=== PATIENT | male | born 1990 | race Caucasian/White ===

== ENCOUNTER 2021-09-26 | Outpatient (REF) | payer OTHER, SELFPAY ==
[2021-09-27 12:09] LABS: Influenza A PCR NEGATIVE (Negative); Influenza B PCR NEGATIVE (Negative); Resp Syncy Virus RNA Qual PCR NEGATIVE (Negative); SARS COV2 PCR INHOUSE NEGATIVE (Negative)
== END 2021-09-26 00:01 | disposition home or self-care (01) ==
LOC: HO.LNP
PROVIDERS: Visit Provider Internal Medicine
DX: Z20.822 Contact with and (suspected) exposure to COVID-19 (principal); R43.9 Unspecified disturbances of smell and taste
CPT/HCPCS: 0241U

== ENCOUNTER 2023-11-18 09:09 | Emergency (ER) | payer MEDICAID, SELFPAY ==
--- NOTE | ~2023-11-18 | XR_ITS ---
EXAMINATION: XR FOOT, LEFT CLINICAL INFORMATION: Pain COMPARISON: Same day left ankle TECHNIQUE: AP, lateral, and oblique views of the left foot. FINDINGS: The bones are intact. No fracture. Alignment is anatomic. Joint spaces are maintained. Small bony spur extends off the medial aspect of the distal phalanx of the great toe. Achilles enthesophyte is noted. XR/XR foot LT min 3V IMPRESSION: No acute bony abnormality.
--- NOTE | ~2023-11-18 | XR_ITS ---
EXAMINATION: XR ANKLE, LEFT CLINICAL INFORMATION: Pain COMPARISON: Same-day left foot TECHNIQUE: AP and mortise views of the left ankle. Lateral views of the ankle is seen with the views of the left foot. FINDINGS: No fracture. Alignment is anatomic. No erosions. Joint spaces are maintained. Mild soft tissue swelling about the ankle. Achilles enthesophyte is noted. XR/XR ankle LT min 3V IMPRESSION: No acute bony abnormality.
[2023-11-18 09:37] VITALS: BP 119/77; PULSE 73; RESP 16; TEMP 36.6; O2SAT 98; BMI 53.5
[2023-11-18] MEDS: Ibuprofen 600 MG TABLET PO (09:45)
--- NOTE | 2023-11-18 09:48 | ED.LOWEXIN ---
HPI - Extremity Injury (Lower) General Chief Complaint: Extremity Injury, Lower Stated Complaint: Pain left leg Time Seen by Provider: 11/18/23 09:24 Source: patient and RN notes reviewed Mode of arrival: ambulatory Limitations: no limitations History of Present Illness HPI Narrative: This is a 33-year-old [place]-speaking male, with no known medical problems, presenting to the emergency department with complaints of left ankle and foot pain since this morning. Patient states that while he was working he slipped and accidentally inverted his left ankle. Denies hitting his head or loss of consciousness. He did not fall to the ground. He states that he is unable to fully bear weight on his left foot and ankle since the injury due to pain. Denies history of injury or trauma to the left ankle and foot in the past. He denies taking any medications prior to his arrival. Denies any numbness, tingling or weakness. No other complaints or concerns at this time. MD complaint: ankle injury and foot injury Onset (ago): hour(s) Type of Injury: inversion Place: work Severity: moderate Relieving factors: cold therapy and immobilization Exacerbating factors: weight bearing and movement Context: walking Associated symptoms: swelling and able to partially bear weight Other symptoms: none Related Data Previous Rx's Medication Instructions Recorded albuterol sulfate 90 mcg/actuation 1 inh inhalation QID PRN shortness 09/26/21 aerosol inhaler of breath or wheezing #6.7 grams azithromycin 250 mg tablet See Rx Instructions PO .COMPLEX #6 09/26/21 tabs Allergies Allergy/AdvReac Type Severity Reaction Status Date / Time Seafood Allergy Unknown Hives Uncoded 06/16/19 00:00 Review of Systems Review of Systems: Yes all other systems are reviewed and are negative [facility] Past Medical History Attestation statement: The following information was validated with the patient. Social History Social History Patient Tobacco Use Status: Never used Tobacco Advance Directives: No Advance Directives Information Provided: No Physical Exam Vital Signs: Vital Signs: Last Vital Signs Temp 97.9 F 11/18/23 09:37 Pulse 73 11/18/23 09:37 Resp 16 11/18/23 09:37 BP 119/77 11/18/23 09:37 Pulse Ox 98 11/18/23 09:37 O2 Del Method Room Air 11/18/23 09:37 BMI result Body Mass Index 53.5 Const: Other: General: Awake, alert, and oriented X3. No acute distress. HEENT: Normal inspection CVS: Normal heart rate and rhythm. Pulses normal. Respiratory: No respiratory distress Skin: Warm, dry, no rashes noted to exposed skin. Normal skin color. Normal skin turgor. Extremities: Left ankle and foot without any gross bony abnormalities. Patient does have tenderness palpation along the lateral and medial malleolus as well as the anterior forefoot, and left 5th metatarsal. Able to wiggle toes. Dorsi and plantar flexion intact, pain with eversion and inversion. DP pulse 2 + Neuro: Oriented X 3. No motor deficit. No sensory deficit. Course Reevaluation(s) Reevaluation #1: X-ray reviewed as no acute bony abnormalities. Will place patient in Shravan wrap and given crutches. Given orthopedic follow-up if patient's pain persists. Discharged on ibuprofen and given return precautions. Patient stable for discharge. Time: 10:30 Medications Administered Discontinued Medications Generic Name Dose Route Start Last Admin Trade Name Freq PRN Reason Stop Dose Admin Ibuprofen 600 mg 11/18/23 09:39 11/18/23 09:45 Ibuprofen 600 Mg Tablet PO 11/18/23 09:40 600 mg ONCE ONE Administration Medical Decision Making Medical Decision Making [facility] Narrative: This is a 33-year-old [place]ican-speaking male presenting to the emergency department with complaints of left ankle and foot pain status post inversion injury that happened at work today. On arrival, vital signs within normal limits. Patient has tenderness palpation along medial and lateral malleolus as well as left 5th metatarsal. Differential diagnoses include fracture, sprain, strain, contusion. Will obtain x-ray of the left foot and left ankle. Patient medicated with Motrin 600 mg by mouth. Differential Diagnosis Differential Diagnoses: The differential diagnosis associated with the presentation includes See above Radiology Impression Discussion of test interpretation with radiology: I have reviewed the radiologist's reading. Radiologist Impression: EXAMINATION: XR FOOT, LEFT CLINICAL INFORMATION: Pain COMPARISON: Same day left ankle TECHNIQUE: AP, lateral, and oblique views of the left foot. FINDINGS: The bones are intact. No fracture. Alignment is anatomic. Joint spaces are maintained. Small bony spur extends off the medial aspect of the distal phalanx of the great toe. Achilles enthesophyte is noted. XR/XR foot LT min 3V IMPRESSION: No acute bony abnormality. Dictated By: Bibi Leos MD EXAMINATION: XR ANKLE, LEFT CLINICAL INFORMATION: Pain COMPARISON: Same-day left foot TECHNIQUE: AP and mortise views of the left ankle. Lateral views of the ankle is seen with the views of the left foot. FINDINGS: No fracture. Alignment is anatomic. No erosions. Joint spaces are maintained. Mild soft tissue swelling about the ankle. Achilles enthesophyte is noted. XR/XR ankle LT min 3V IMPRESSION: No acute bony abnormality. Dictated By: Bibi Leos MD Prescription Management I considered prescription management with: Pain Medication Discharge Plan Discharge Clinical Impression: Ankle sprain and strain Patient Disposition: Home, Self-Care Instructions: Ankle Sprain (ED) Additional Instructions: You were seen in the emergency department after injuring her left ankle and foot. Your x-ray did not show any broken bones. Please use Shravan wrap, rest, ice, and elevate your left foot and ankle. You may also use crutches as needed. If you continue to have pain and symptoms in your foot and ankle in 3-4 weeks, you may follow-up with Orthopedics, call to make an appointment. I am also prescribing you ibuprofen. This will help with pain and inflammation. If any new or worsening symptoms occur including but not limited to worsening pain, redness, swelling, chest pain, or shortness breast, please return for re-evaluation. Fue atendida en urgencias despu?s de lesionarse el tobillo y el pie izquierdos. Bautista radiograf?a no mostr? emmanuel?n hueso roto. Utilice Shravan Wrap, descanse, coloque hielo y eleve el pie y el tobillo izquierdos. Tambi?n puede usar muletas seg?n sea necesario. Si contin?a teniendo dolor y s?ntomas en el pie y el tobillo en 3-4 semanas, puede realizar un seguimiento con [employer], llame para programar chen ede. Tambi?n te estoy recetando ibuprofeno. Percy ayudar? con el dolor y la inflamaci?n. Si se presenta alg?n s?ntoma nuevo o que empeora, incluidos, entre otros, empeoramiento del dolor, enrojecimiento, hinchaz?n, dolor en el pecho o falta de pecho, regrese para chen nueva evaluaci?n. Prescriptions: No Action azithromycin 250 mg tablet See Rx Instructions PO .COMPLEX Qty: 6 0RF Rx Instructions: take 500 mg today (day 1), then 250 mg for 4 days (days 2-5) PO albuterol sulfate 90 mcg/actuation HFA aerosol inhaler 1 inh inhalation QID PRN (Reason: shortness of breath or wheezing) Qty: 6.7 1RF Referrals: [facility] [Provider Group] Print Language: [place]
== END 2023-11-18 10:53 | disposition home or self-care (01) ==
PROVIDERS: Emergency Provider Emergency Medicine
DX: S93.402A Sprain of unspecified ligament of left ankle, initial encounter (principal); S96.912A Strain of unspecified muscle and tendon at ankle and foot level, left foot, initial encounter; W01.0XXA Fall on same level from slipping, tripping and stumbling without subsequent striking against object, initial encounter; Y93.9 Activity, unspecified; Y92.9 Unspecified place or not applicable; Y99.9 Unspecified external cause status; M79.672 Pain in left foot
CPT/HCPCS: 73610; 73630; 99283

== ENCOUNTER 2025-08-03 22:11 | Emergency (ER) | payer OTHER, SELFPAY ==
--- NOTE | ~2025-08-03 | XR_ITS ---
CLINICAL HISTORY: wrist pain 4 view left wrist Comparison: None provided Findings: Bones intact. No dislocations. No significant arthritic change or erosions. No radiopaque foreign body. IMPRESSION: 1. No acute findings This document has been electronically signed by: Salvatore Michelle MD, PHD on 08/03/2025 23:28:48
[2025-08-03 22:14] VITALS: BP 132/65; PULSE 71; RESP 16; TEMP 36.6; O2SAT 100; BMI 47.7
--- NOTE | 2025-08-04 00:09 | ED_ITS ---
HPI - Extremity Problem General Chief complaint: Extremity Injury, Upper Stated complaint: L shoulder pain down to L hand Time Seen by Provider: 08/04/25 00:05 Source: patient and family Mode of arrival: ambulatory Limitations: no limitations History of Present Illness ED Provider: Dr. Glenna Galvez HPI Narrative: 35-year-old male with history of asthma presenting with left arm pain radiating from his shoulder to his fingertips. Describes pain that is worse with abduction and external rotation of the arm. Does not recall injuring his on but has been lifting furniture lately. Denies other injury. 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 Denies fever, skin changes, nausea, vomiting, known sick contacts or travel. No chest pain or difficulty breathing Related Data Previous Rx's ?Medication ?Instructions ?Recorded albuterol sulfate 90 mcg/actuation 1 inh inhalation QI D PRN shortness 09/26/21 aerosol inhaler of breath or wheezing #6.7 g mal[place] azithromycin 250 mg tablet See Rx Instructions PO .COM PLEX #6 09/26/21 tabs gabapentin 300 mg capsule 300 mg PO TID #14 caps 08/04 ibuprofen 600 mg tablet 600 mg PO Q8H PRN fever or p ain 08/04/25 #30 tabs Allergies Allergy/AdvReac Type Severity Reaction Status Date / Time Seafood Allergy Unknown Hives Uncoded 08/03/25 22:17 Review of Systems Review of Systems: as per HPI, full review of systems performed and negative but for the above mentioned pertinent positives and negatives. [facility] Social History Social History Patient Tobacco Use Status: Never used Tobacco Advance Directives: No Advance Directives Information Provided: Yes Do you have a plan to hurt others: No Plan Physical Exam Exam: Exam: GENERAL: Well-Appearing, conversant, no acute distress. SKIN: Normal skin color for ethnicity, no rashes noted. HEENT: Normocephalic, atraumatic, no stridor, EOMI. CHEST: Heart regular rate and rhythm, no murmurs, symmetric chest rise and fall. PULMONARY: Clear to auscultation bilaterally, no labored breathing, no wheezes/rhales/rhonchi. ABDOMINAL: Soft, nondistended, nontender, positive bowel sounds in all quadrants. : Deferred. MUSCULOSKELETAL: Normal tone, limited ROM in the L shoulder in external rotation and abduction, NV intact distally, full function of the radial, median and ulnar nerves of the L hand, no deformities, no peripheral edema. NEURO: Alert and oriented x3, CN II through XII intact, equal strength and sensation bilateral upper and lower extremities, no focal neurologic deficits. PSYCHIATRIC: Normal affect, fluid speech, good eye contact and appropriate demeanor. Vital Signs: Vital Signs: Last Vital Signs Temp 98 F 08/04/25 03:32 Pulse 73 08/04/25 03:32 Resp 16 08/04/25 03:32 BP 109/73 08/04/25 03:32 Pulse Ox 100 08/04/25 03:32 O2 Del Method Room Air 08/04/25 03:32 BMI result Body Mass Index 47.7 Medical Decision Making Medical Decision Making [facility] Narrative: Patient presents today with musculoskeletal injury. Differential diagnosis includes fracture, soft tissue contusion, ligamentous injury, tendon injury, infection, laceration, among others. Patient is neurovascularly intact upon arrival to the emergency department. Based on physical exam, appropriate imaging was ordered. Clinical picture is consistent with shoulder impingement syndrome. Patient has significant tenderness overlying the anterior left shoulder, particularly with abduction and external rotation. Will place him in a sling, have a follow-up with Orthopedic surgery as an outpatient. Discharged home stable condition. Differential Diagnosis Differential Diagnoses: The differential diagnosis associated with the presentation includes (as above) Radiology Impression Discussion of test interpretation with radiology: I have reviewed the radiologist's reading. Radiologist Impression: 4 view left wrist Comparison: None provided Findings: Bones intact. No dislocations. No significant arthritic change or erosions. No radiopaque foreign body. IMPRESSION: 1. No acute findings Chronic Conditions Patient?s care impacted by: Other (asthma) Discharge Plan Discharge Clinical Impression: Impingement syndrome of left shoulder Patient Disposition: Home, Self-Care Instructions: Shoulder Impingement Syndrome (ED) Additional Instructions: Use Tylenol and Motrin for pain as needed, especially Motrin for inflammation and joint pain. You may also use gabapentin for nerve pain. This medication will make you sleepy so do not drive while using this medication. Return to the emergency department with any new or worsening symptoms including: Fevers greater than 100?, redness that tracks away from your wrist, nausea or vomiting, weakness of your hand, any new symptom that concerns you. Prescriptions: New gabapentin 300 mg capsule 300 mg PO TID Qty: 14 0RF ibuprofen 600 mg tablet 600 mg PO Q8H PRN (Reason: fever or pain) Qty: 30 0RF No Action azithromycin 250 mg tablet See Rx Instructions PO .COMPLEX Qty: 6 0RF Rx Instructions: take 500 mg today (day 1), then 250 mg for 4 days (days 2-5) PO albuterol sulfate 90 mcg/actuation HFA aerosol inhaler 1 inh inhalation QID PRN (Reason: shortness of breath or wheezing) Qty: 6.7 1RF Interventions: ED Discharge Assessment Last Done: 08/04/25 03:32 Discharge Date/Time: 08/04/25 03:00 Print Language: [place]
--- OUTSIDE RECORDS SUMMARY | 2025-08-04 01:53 | XMS_ITS | Clinical Summary ---
Author Organization [facility] it Address [address] [place] [address] Care Team Providers Care Project Estimator Name Role Phone Unavailable Primary Care Provider Unavailabl e Surgical History Surgery Date Site/Laterality Comments OTHER SURGICAL HISTORY PROCEDURE: DENIES PREVIOUS SURGERY Medical History Medical History Date Comments Gallstones DX:Gallstones Family History Medical History Relation Name Comments Diabetes Brother 1 No Known Problems Brother 2 No Known Problems Brother 3 No Known Problems Brother 4 No Known Problems Brother 5 No Known Problems Father Other: heart problem Mother No Known Problems Sister 1 No Known Problems Sister 2 No Known Problems Sister 3 No Known Problems Sister 4 No Known Problems Sister 5 No Known Problems Sister 6 Relation Name Status Comments Brother 1 Brother 2 Brother 3 Brother 4 Brother 5 Father Mother Sister 1 Sister 2 Sister 3 Sister 4 Sister 5 Sister 6 Social History Tobacco Use Types Packs/Day Years Used Date Smoking Tobacco: Never Smokeless Tobacco: Never Alcohol Use Standard Drinks/Week Comments No 0 (1 standard drink = 0.6 oz pur e alcohol) Sex and Gender Information Value Date Recorded Sex Assigned at Not on file Legal Sex Male 2:07 AM EST Gender Identity Not on file Sexual Orientation Not on file Obstetrics History Plan of Treatment Health Maintenance Due Date Last Done Comments DTaP,Tdap,and Td Vaccines (1 - Tdap) 2008 Hepatitis B Vaccines (1 of 3 - 19+ 3-dose series) 2008 HPV Vaccines (1 - 3-dose SCD M series) 2016 Cholesterol Screening (Lipid Panel) 09/23/2022 HIV Screening 09/23/2022 Hepatitis C Screening 09/23/2022 Social Influencers of Health Screening 09/23/2022 Depression Screening 10/21/2024 COVID-19 Vaccine (1 - 2023-2 5 season) 2025 Influenza Vaccine (#1) 2025 RSV Immunization Adult Patie nts (1 - 1-dose 75+ series) 2064 HIB Vaccines Aged Out No longer eligi ble based on patient's age to complete this topic Hepatitis A Vaccines Aged Out No long er eligible based on patient's age to complete this topic IPV Vaccines Aged Out No longer eligi ble based on patient's age to complete this topic MMR Vaccines Aged Out No longer eligi ble based on patient's age to complete this topic Meningococcal ACWY Vaccine Aged Out N o longer eligible based on patient's age to complete this topic Meningococcal B Vaccine Aged Out No l onger eligible based on patient's age to complete this topic Pneumococcal Vaccine: Pediat rics (0 to 5 Years) and At-Risk Patients (6 to 49 Years) Aged Out No longer eligible b ased on patient's age to complete this topic RSV Immunization Patients Un lexi 20 months Aged Out No longer eligible b ased on patient's age to complete this topic Varicella Vaccines Aged Out No longer eligible based on patient's age to complete this topic
--- NOTE | 2025-08-04 03:31 | PC.NURSE ---
sling was applied to LUE at d/c. pt verbalizes understanding how to reapply. pt educated on d/c instructions and verbalizes understanding. d/c with spouse from [facility].
[2025-08-04 03:32] VITALS: BP 109/73; PULSE 73; RESP 16; TEMP 36.6; O2SAT 100
== END 2025-08-04 03:00 | disposition home or self-care (01) ==
PROVIDERS: Emergency Provider Emergency Medicine
DX: M75.42 Impingement syndrome of left shoulder (principal); M25.532 Pain in left wrist
CPT/HCPCS: 73110; 99282; 99283

== ENCOUNTER → 2025-08-03 22:39 | Outpatient (BNV) | payer MEDICAID, SELFPAY | PROVIDERS: Emergency Provider Emergency Medicine; Visit Provider General Practice | DX: M25.532 Pain in left wrist (principal) | CPT/HCPCS: 73110 ==